=== PATIENT | female | born 1990 | race Caucasian/White ===

== ENCOUNTER 2021-09-09 05:30 | Inpatient (IN) | payer OTHER, SELFPAY ==
[~2021-09-09] VITALS: Ht 162.6 cm; Wt 79.4 kg
[2021-09-09 05:35] VITALS: BP 126/89
[2021-09-09] MEDS ORDERED: OXYTOCIN 20 UNITS in LACTATED RINGERS 1,000 ML IV SCH (06:10)
[2021-09-09] MEDS ORDERED: MORPHINE SULFATE 5 MG/ML VIAL IVP PRN (06:10)
[2021-09-09] MEDS ORDERED: ONDANSETRON 4 MG/2 ML VIAL IVP PRN (06:10)
[2021-09-09 06:37] LABS: BASOPHILS # (AUTO) 0.1 K/uL (0.00-0.22); BASOPHILS % (AUTO) 0.8 % (0.0-2.0); EOSINOPHILS % (AUTO) 0.2 % (0.0-4.0); HEMATOCRIT 31.9 % (36-48); HEMOGLOBIN 10.5 g/dL (12.0-16.0); LYMPHOCYTES # (AUTO) 1.3 K/uL (2.5-16.5); LYMPHOCYTES % (AUTO) 14.2 % (20.5-51.1); MEAN CORPUSCULAR HEMOGLOBIN 24 pg (27-31); MEAN CORPUSCULAR HGB CONC 33 g/dL (33-37); MEAN CORPUSCULAR VOLUME 73.4 fL (80-94); MONOCYTES # (AUTO) 0.6 K/uL (0.8-1.0); MONOCYTES % (AUTO) 6.2 % (1.7-9.3); NEUTROPHILS # (AUTO) 7.2 K/uL (1.8-7.7); NEUTROPHILS % (AUTO) 78.6 % (42.2-75.2); PLATELET COUNT (AUTO) 254 K/uL (140-450); RED BLOOD CELL COUNT(AUTO) 4.34 MIL/uL (4.20-5.40); RED CELL DISTRIBUTION WIDTH 16.5 % (11.6-13.7); WHITE BLOOD COUNT (AUTO) 9.1 K/uL (4.8-10.8)
[2021-09-09] MEDS: LACTATED RINGERS 1,000 ML IV SCH ×2 (06:53→09:18)
[2021-09-09 07:00] LABS: ALBUMIN 2.8 g/dL (3.4-5.0); ANION GAP 14.3 (8-16); CARBON DIOXIDE 24.4 mmol/L (21-32); CREATININE 0.6 mg/dL (0.6-1.3); POTASSIUM 3.7 mmol/L (3.5-5.1); TOTAL BILIRUBIN 0.3 mg/dL (0.0-1.0)
[2021-09-09 07:23] LABS: APPEARANCE,URINE CLEAR (CLEAR); BILIRUBIN,URINE NEGATIVE (NEGATIVE); BLOOD, URINE NEGATIVE (NEGATIVE); COLOR,URINE YELLOW (YELLOW); LEUKOCYTE ESTERASE ,URINE TRACE (NEGATIVE); NITRITE, URINE NEGATIVE (NEGATIVE); PH,URINE 7.5 (5.0-9.0); UGLUCOSE NEGATIVE (NEGATIVE)
[2021-09-09] MEDS ORDERED: MORPHINE SULFATE 10 MG/ML VIAL ONE ×2 (07:25→10:20)
[2021-09-09 07:28] LABS: RBC,URINE 0-5 /HPF (0-5); WBC,URINE 0-5 /HPF (0-5)
[2021-09-09 07:35] VITALS: BP 125/66
[2021-09-09] MEDS ORDERED: OXYTOCIN 20 UNITS/LR PREMIX 1,000 ML IV ONE (08:33)
--- NOTE | 2021-09-09 10:19 | NUR ---
PATIENT HAS BEEN SCREENED AND CATEGORIZED LOW NUTRITION RISK. PATIENT WILL BE SEEN WITHIN 7 DAYS OF ADMISSION. 09/15/[address]
[2021-09-09] MEDS ORDERED: bisacodyL 5 MG TABEC PO PRN (10:55)
[2021-09-09] MEDS ORDERED: SIMETHICONE 80 MG TAB.CHEW PO PRN (10:55)
[2021-09-09] MEDS ORDERED: IBUPROFEN 600 MG TAB PO PRN (10:55)
[2021-09-09] MEDS ORDERED: BENZOCAINE/MENTHOL 20%-0.5% 60 GM CAN TP PRN (10:55)
[2021-09-09] MEDS ORDERED: METHYLERGONOVINE 0.2 MG TAB PO PRN (10:55)
[2021-09-09] MEDS ORDERED: DOCUSATE SODIUM 100 MG GELCAP PO PRN (10:55)
[2021-09-09] MEDS ORDERED: IBUPROFEN 800 MG TAB PO PRN (10:55)
[2021-09-09] MEDS ORDERED: METHYLERGONOVINE 0.2 MG/ML AMP IM PRN (10:55)
[2021-09-09] MEDS ORDERED: OXYTOCIN 10 UNITS/ML VIAL IM PRN (10:55)
[2021-09-09] MEDS ORDERED: MEASLES, MUMPS, AND RUBELLA 1 VIAL SQVAC ONE (10:55)
[2021-09-09] MEDS ORDERED: MEASLES, MUMPS, AND RUBELLA 1 VIAL SQVAC PRN (11:00)
[2021-09-10 09:27] LABS: HEMATOCRIT 29.5 % (36-48); HEMOGLOBIN 9.7 g/dL (12.0-16.0)
== END 2021-09-11 12:10 | disposition home or self-care (01) | DRG 560 ==
LOC: MLD 05:30 → MFCC 18:00
PROVIDERS: ADMIT Obstetrics & Gynecology; ATTEND Obstetrics & Gynecology
PROC: 10E0XZZ Delivery of Products of Conception, External Approach (ICD-10-PCS; principal; 2021-09-09)
DX: O80 Encounter for full-term uncomplicated delivery (principal); Z37.0 Single live birth; Z20.822 Contact with and (suspected) exposure to COVID-19; Z3A.39 39 weeks gestation of pregnancy
CPT/HCPCS: 36415; 59409; 80053; 81001; 85018; 85025; 86592; 86886; 86900; 86901; 90715; J2270; J2405; J2590